=== PATIENT | female | born 1975 | race Caucasian/White ===

== ENCOUNTER 2016-07-20 05:57 | Day surgery (SDC) | payer MEDICAID ==
[2016-07-18 14:40] LABS: BASOPHILS 0.1 % (0-2); EOSINOPHILS 1.3 % (0-7); HEMOGLOBIN 13.9 g/dL (12-16); IMMATURE GRANULOCYTES 0.1 % (0-5); MCH 28.8 pg (26.0-34.0); MCHC 33.1 g/dL (31.0-37.0); MCV 87.1 fL (80.0-100.0); MEAN PLATELET VOLUME 9.9 fL (7.4-10.4); MONOCYTES 5.2 % (2-11); NEUTROPHILS 70.3 % (40-80); RBC 4.82 10x6/uL (4.00-5.40); WBC 7.1 10x3/uL (4.8-10.8)
[2016-07-18 14:50] LABS: PLATELET COUNT 199 10x3/uL (130-400)
[2016-07-18 15:11] LABS: ANION GAP 11.6 mmol/L (8-16); CALCIUM 8.8 mg/dL (8.5-10.1); CARBON DIOXIDE 28.7 mmol/L (21.0-32.0); CREATININE - SERUM 1.1 mg/dL (0.6-1.3); POTASSIUM - SERUM 3.3 mmol/L (3.5-5.1)
[~2016-07-20] VITALS: Ht 165.1 cm; Wt 81.6 kg
[~2016-07-20 05:57] MED LIST: AMETHIA 0.15-01 EACH PO
[2016-07-20 11:23] VITALS: BP 130/80; Ht 165.1 cm; Wt 81.6 kg
[2016-07-20 11:32] LABS: HCG URINE NEGATIVE (NEGATIVE)
--- NOTE | 2016-07-20 12:36 | HP ---
PATIENT: BLAKE AMAYA MEDICAL RECORD: [id number] ACCOUNT: [id number] LOCATION:[facility] : 79 ADMISSION DATE: 07/20/16 HISTORY AND PHYSICAL EXAMINATION HISTORY OF PRESENT ILLNESS: This patient is a 41-year-old 4, para 4 white female with abnormal Pap smear and cervical biopsy results of JOHN 1 and 2. She is scheduled for examination under anesthesia with colposcopy, LEEP procedure, endocervical curettage, all indicated procedures on July 20. MEDICAL HISTORY: DRUG ALLERGIES: None known. CURRENT MEDICATIONS: Include oral contraceptives. PREVIOUS SURGERIES: None. MEDICAL PROBLEMS: Denies heart disease, diabetes, hypertension, kidney problems, thyroid problems. FAMILY HISTORY: Noncontributory. SOCIAL HISTORY: The patient is , former smoker. No ethanol use. PHYSICAL EXAMINATION: VITAL SIGNS: Weight is 188, blood pressure 110/70. HEENT: Unremarkable. LUNGS: Clear. HEART: Regular rate and rhythm. PELVIC: Examination is current and deferred for anesthesia. EXTREMITIES: No cyanosis, clubbing or edema. NEUROLOGIC: Grossly intact. IMPRESSION: Repetitive abnormal Pap smears with colposcopically-guided biopsies of JOHN 1 and 2. PLAN: Exam under anesthesia with colposcopy and LEEP procedure and endocervical curettage. I have discussed the above planned procedures with the patient and answered all her questions further discussed risks of anesthesia, infection, bleeding and injury to other organs. TRANSINT:[id number] Voice Confirmation ID: [id number] DOCUMENT ID: [id number] EVAN MARTINEZ MD at 1236 CC: [id number] DICTATION DATE: 07/20/16 0726 JR. JAVA DEVELOPER: 07/20/16 1204 [facility] [address] [place] [address]
--- NOTE | 2016-07-20 14:43 | NUR ---
1443 BACK FROOM LEEP ALERT AND VERBALLY RESPONSIVE. SLIGHT ABDOMINAL CRAMPING. RESP EVEN AND NONLABORED. ICE CHIPS SERVED.
--- NOTE | 2016-07-20 16:38 | NUR ---
1530 TOLERATED FULL LIQUIDS NO NAUSEA SLIGHT ABDOMEN CRAMPING STATED DOESN'T NEED PAIN MEDS. UP TO THE BATHROOM AND VOIDED.
--- NOTE | 2016-07-20 16:42 | NUR ---
1540 IV DCD CATHETER INTACT. NO COS VOICED. PERIPAD GIVEN SCANT AMT BROWN LIKE DISCHARGE NOTED NO CLOTS.
--- NOTE | 2016-07-20 16:43 | NUR ---
1545 TO HOME VIA W/C WITH FAMILY.
--- NOTE | 2016-07-23 12:02 | OP ---
PATIENT NAME: BLAKE AMAYA MEDICAL RECORD: [id number] :79 LOCATION:[facility] ADMISSION DATE: SURGEON: AYDEE MARTINEZ MD DATE OF OPERATION: 07/20/2016 PREOPERATIVE DIAGNOSIS: Moderate cervical dysplasia. POSTOPERATIVE DIAGNOSIS: Moderate cervical dysplasia. PROCEDURE: LEEP excision of the ectocervix and endocervical curettage. SURGEON: Aydee Martinez MD ANESTHESIA: General and local. FINDINGS: Normal appearing ectocervix with white epithelium at the os circumference. ESTIMATED BLOOD LOSS: Minimal. COMPLICATIONS OF SURGERY: None. OPERATIVE NOTE: The patient was taken to the OR and under adequate general anesthesia, prepped and draped in the usual manner for vaginal procedures with legs in floating boot Leonidas stirrups. The cervix was evaluated using a colposcope, acetic acid solution and Lugol solution. Local anesthetic was then administered circumferentially to aid in postoperative pain relief and hemostasis. The entire circumference of the cervical os was excised using a 20 mm LEEP loop. This was followed by endocervical curettage sent as a separate specimen. The LEEP bed was then treated with electrocautery. Hemostasis was good. Astringent was applied. The patient went to recovery area in good condition with minimal to no bleeding. TRANSINT:[id number] Voice Confirmation ID: [id number] DOCUMENT ID: [id number] AYDEE MARTINEZ MD at 1202 CC: [id number] DICTATION DATE: 07/20/16 1413 ACTIVITIES OFFICER: 07/21/16 0130 [facility] 07/20/[address] [id number]
== END 2016-07-20 15:45 | disposition home or self-care (01) ==
LOC: D.OPS 05:57 → D.PAN 12:00 → D.OPS 12:00
PROVIDERS: Obstetrics & Gynecology
DX: N87.1 Moderate cervical dysplasia (principal)

== ENCOUNTER 2018-05-27 15:33 | Emergency (ER) | payer MEDICAID ==
[~2018-05-27] VITALS: Ht 165.1 cm; Wt 77.3 kg
[2018-05-27] MEDS ORDERED: PRENAVITE1 TAB PO (16:01)
[2018-05-27 16:27] LABS: BASOPHILS 0.1 % (0-2); EOSINOPHILS 1.5 % (0-7); HEMATOCRIT 41.4 % (36.0-48.0); HEMOGLOBIN 14.1 g/dL (12-16); IMMATURE GRANULOCYTES 0.4 % (0-5); LYMPHOCYTES 23.9 % (15-50); MCHC 34.1 g/dL (31.0-37.0); MEAN PLATELET VOLUME 9.5 fL (7.4-10.4); NEUTROPHILS 68.1 % (40-80); PLATELET COUNT 195 10x3/uL (130-400); RBC 4.87 10x6/uL (4.00-5.40); RDW 13.2 % (11.5-14.5); WBC 8.4 10x3/uL (4.8-10.8)
[2018-05-27 16:30] LABS: APPEARANCE CLEAR (CLEAR); BILIRUBIN NEGATIVE (NEGATIVE); COLOR YELLOW (YELLOW); GLUCOSE NEGATIVE (NEGATIVE); KETONE NEGATIVE (NEGATIVE); NITRITE POSITIVE (NEGATIVE); PROTEIN NEGATIVE (NEGATIVE); UROBILINOGEN NORMAL (NORMAL)
[2018-05-27 16:31] LABS: EPITHELIAL CELLS 0-5 /hpf (0-5); RED CELLS - URINE OCC /hpf (0-5)
[2018-05-27 16:32] LABS: BACTERIA MANY /hpf (NONE SEEN)
[2018-05-27 16:47] LABS: ALBUMIN 3.8 g/dL (3.4-5.0); BILIRUBIN - TOTAL 0.37 mg/dL (0.2-1.3); CALCIUM 8.6 mg/dL (8.5-10.1); CARBON DIOXIDE 25.8 mmol/L (21.0-32.0); CREATININE - SERUM 1.1 mg/dL (0.6-1.3); POTASSIUM - SERUM 3.8 mmol/L (3.5-5.1); PROTEIN - SERUM 7.4 g/dL (6.4-8.2)
[2018-05-27] MEDS ORDERED: KEFLEX500 MG PO (20:39)
[2018-05-27] MEDS ORDERED: MACROBID100 MG PO (20:39)
== END 2018-05-27 21:10 | disposition home or self-care (01) ==
LOC: D.ER 15:33
PROVIDERS: Family Medicine
DX: O23.41 Unspecified infection of urinary tract in pregnancy, first trimester (principal); Z3A.11 11 weeks gestation of pregnancy

== ENCOUNTER 2018-06-09 07:50 | Emergency (ER) | payer BC ==
[~2018-06-09] VITALS: Ht 165.1 cm; Wt 77.3 kg
[~2018-06-09 07:50] MED LIST changes: +KEFLEX500 MG PO; +MACROBID100 MG PO; +PRENAVITE1 TAB PO
[2018-06-09 07:52] VITALS: BP 121/75; Ht 165.1 cm; Wt 77.3 kg
[2018-06-09 08:44] LABS: BASOPHILS 0.1 % (0-2); EOSINOPHILS 1.5 % (0-7); HEMATOCRIT 43.9 % (36.0-48.0); HEMOGLOBIN 15.1 g/dL (12-16); IMMATURE GRANULOCYTES 0.4 % (0-5); LYMPHOCYTES 17.5 % (15-50); MCH 29.2 pg (26.0-34.0); MCHC 34.4 g/dL (31.0-37.0); MCV 84.9 fL (80.0-100.0); MEAN PLATELET VOLUME 9.7 fL (7.4-10.4); MONOCYTES 5.7 % (2-11); NEUTROPHILS 74.8 % (40-80); PLATELET COUNT 171 10x3/uL (130-400); RBC 5.17 10x6/uL (4.00-5.40); RDW 13.3 % (11.5-14.5); WBC 7.9 10x3/uL (4.8-10.8)
[2018-06-09 08:54] LABS: HCG SERUM POSITIVE (NEGATIVE)
[2018-06-09 08:58] LABS: ANION GAP 12.6 mmol/L (8-16); BILIRUBIN - TOTAL 0.64 mg/dL (0.2-1.3); CALCIUM 9.1 mg/dL (8.5-10.1); CARBON DIOXIDE 27.9 mmol/L (21.0-32.0); POTASSIUM - SERUM 4.5 mmol/L (3.5-5.1); PROTEIN - SERUM 7.7 g/dL (6.4-8.2)
[2018-06-09 11:05] LABS: APPEARANCE CLEAR (CLEAR); BILIRUBIN NEGATIVE (NEGATIVE); COLOR STRAW (YELLOW); GLUCOSE NEGATIVE (NEGATIVE); KETONE NEGATIVE (NEGATIVE); NITRITE NEGATIVE (NEGATIVE); PROTEIN NEGATIVE (NEGATIVE); SPECIFIC GRAVITY 1.005 (1.005-1.020); UROBILINOGEN NORMAL (NORMAL)
[2018-06-09 11:06] LABS: AMORPHOUS SEDIMENT <1+ /lpf (NONE SEEN); BACTERIA MODERATE /hpf (NONE SEEN); EPITHELIAL CELLS 0-5 /hpf (0-5); WHITE CELLS - URINE 0-5 /hpf (0-5)
== END 2018-06-09 11:24 | disposition home or self-care (01) ==
LOC: D.ER 07:50
PROVIDERS: Family Medicine
DX: O03.9 Complete or unspecified spontaneous abortion without complication (principal)